=== PATIENT | female | born 1985 | race Caucasian/White ===

== ENCOUNTER 2017-03-02 22:30 | Emergency (ER) | payer MEDICAID ==
--- NOTE | 2017-03-02 23:22 | ER NURSING DOCUMENTATION ---
Nurse's Notes [facility] Name:Armando Lux Age:31 yrs Sex:Female :1985 Arrival Date:03/02/2017 Time:22:30 Bed1 Private MD: Diagnosis:Viral Upper Respiratory Infection (URI) Presentation: 03/02 22:41 Acuity: NISA 3 mk2 22:53 Presenting complaint: Patient states: Cough and sob x 7 days. Pt denies fever. Non mk2 productive cough. Transition of care: Home. Resp Distress? No respiratory distress is noted at this time. Care prior to arrival: None. 22:53 Method Of Arrival: Private Vehicle mk2 Triage Assessment: 22:55 General: Appears in no apparent distress, Behavior is cooperative. Pain: Denies pain. mk2 Respiratory: Airway is patent Breath sounds are clear bilaterally. Historical: - Allergies: Vicodin; Latex; - Home Meds: 1. gabapentin oral - PMHx: NONE; Acute Back Pain (December 31, 2016); - PSHx: APPENDECTOMY; CHOLECYSECTOMY; HYSTERECTOMY; - Tetanus: < 10 years. - Ebola Screening: : Patient negative for fever greater than or equal to 101.5 degrees Fahrenheit, and additional compatible Ebola Virus Disease symptoms. Patient denies exposure to infectious person. Patient denies travel to an Ebola-affected area in the 21 days before illness onset. No symptoms or risks identified at this time. . - Immunization history: Flu Vaccine < 1 year. - Social history: Smoking status: Patient states was never smoker of tobacco. Patient/guardian denies using alcohol, street drugs. Screenin:56 Infectious Disease Risk None. Abuse screen: Denies threats or abuse. Nutritional mk2 screening: No deficits noted. Assessment: 22:56 See Triage Assessment done by same RN. mk2 Vital Signs: 22:55 BP 132 / 64; Pulse 79; Resp 15; Temp 98.2; Pulse Ox 95% on R/A; Weight 88.45 kg; Height mk2 5 ft. 2 in. (157.48 cm); Pain 0/10; 22:55 Body Mass Index 35.67 (88.45 kg, 157.48 cm) mk2 ED Course: 22:31 Patient arrived in ED. ma1 22:34 Mali Mclean, RN is Primary Nurse. mk2 22:34 Triage completed. mk2 22:55 Arm band placed on. Bed in low position Call Light in Reach Gowned HOB Elevated. mk2 23:00 Didier James MD is Attending Physician. cd 23:21 Valuables Remains with patient. mk2 Administered Medications: No medications were administered Outcome: 23:02 Discharge ordered by . cd 23:21 Discharged to home ambulatory. mk2 23:21 Condition: good 23:21 Discharge instructions given to patient, Instructed on discharge instructions, follow up and referral plans. 23:21 Patient left the ED. mk2 Signatures: Didier James MD MD cd Kruger, Meg, RN RN mk2 Kelin Lagos
--- NOTE | 2017-03-02 23:22 | ER PHYSICIAN DOCUMENTATION ---
Physician Documentation [facility] Name:Armando Lux Age:31 yrs Sex:Female :1985 Arrival Date:03/02/2017 Time:22:30 Bed1 Private MD: Didier Acosta Disposition: 03/02 23:05 Chart complete. cd Disposition: 03/02/17 23:02 Discharged to Home/Self Care. Impression: Viral Upper Respiratory Infection (URI). - Condition is Good. - Discharge Instructions: VIRAL URI Adult - URI, Viral, No Abx (Adult). - Medical Reconciliation form form. - Follow up: Private Physician; When: 7 - 10 days; Reason: Recheck today's complaints, Continuance of care. - Problem is new. - Symptoms are unchanged. - Notes: OTC Robitussin DM for cough... OTC Claritin-D 24 hour tabs for congestion Drink plenty of fluids, rest and Tylenol for fever. HPI: 22:40 This 31 yrs old Female presents to ER via Private Vehicle with complaints of cd Cough, Coryza. 22:40 The patient or guardian reports cough, that is intermittent, with no sputum. Onset: The cd symptom(s)/episode began/occurred acutely, 3 day(s) ago. Severity of symptoms: At their worst the symptoms were mild, in the emergency department the symptoms are unchanged. Associated signs and symptoms: Pertinent positives: rhinorrhea, Pertinent negatives: chest pain, ear ache, fever, sore throat. Historical: - Allergies: Vicodin; Latex; - Home Meds: 1. gabapentin oral - PMHx: NONE; Acute Back Pain (December 31, 2016); - PSHx: APPENDECTOMY; CHOLECYSECTOMY; HYSTERECTOMY; - Tetanus: < 10 years. - Ebola Screening: : Patient negative for fever greater than or equal to 101.5 degrees Fahrenheit, and additional compatible Ebola Virus Disease symptoms. Patient denies exposure to infectious person. Patient denies travel to an Ebola-affected area in the 21 days before illness onset. No symptoms or risks identified at this time. . - Immunization history: Flu Vaccine < 1 year. - Social history: Smoking status: Patient states was never smoker of tobacco. Patient/guardian denies using alcohol, street drugs. ROS: 22:55 Constitutional: Positive for poor PO intake, Negative for chills, fever. cd 22:55 ENT: Positive for rhinorrhea, sinus congestion, Negative for sinus pain, sore throat. 22:55 Respiratory: Positive for cough, with clear sputum, Negative for hemoptysis, pleurisy, shortness of breath, wheezing. 22:55 All other systems are negative. Exam: 22:55 Head/Face: Normocephalic, atraumatic. cd Eyes: Pupils equal round and reactive to light, extra-ocular motions intact. Lids and lashes normal. Conjunctiva and sclera are non-icteric and not injected. Cornea within normal limits. Periorbital areas with no swelling, redness, or edema. Neck: Trachea midline, no thyromegaly or masses palpated, and no cervical lymphadenopathy. Supple, full range of motion without nuchal rigidity, or vertebral point tenderness. No Meningismus. 22:55 Cardiovascular: Regular rate and rhythm with a normal S1 and S2. No gallops, murmurs, cd or rubs. Normal PMI, no JVD. No pulse deficits. 22:55 Constitutional: The patient appears alert, awake, non-diaphoretic, non-toxic. 22:55 ENT: TM's: are normal, Nose: congested, Posterior pharynx: is normal, Voice: is normal. 22:55 Respiratory: the patient does not display signs of respiratory distress, Respirations: normal, no acute changes, Breath sounds: are normal, clear throughout. Vital Signs: 22:55 BP 132 / 64; Pulse 79; Resp 15; Temp 98.2; Pulse Ox 95% on R/A; Weight 88.45 kg; Height mk2 5 ft. 2 in. (157.48 cm); Pain 0/10; 22:55 Body Mass Index 35.67 (88.45 kg, 157.48 cm) mk2 MDM: 22:35 Data interpreted: Pulse oximetry: on room air is 95 %. Interpretation: normal. cd 23:00 Patient medically screened. cd 23:00 Differential Diagnosis: Bronchitis Upper Respiratory Infection Sinusitis. Data cd reviewed: vital signs, nurses notes, old medical records, and as a result, I will discharge patient. 23:05 Counseling: I had a detailed discussion with the patient and/or guardian regarding: the cd historical points, exam findings, and any diagnostic results supporting the discharge/admit diagnosis, the need for outpatient follow up, for a recheck, with the patient's primary care provider, to return to the emergency department if symptoms worsen or persist or if there are any questions or concerns that arise at home. Dispensed Medications: No medications were administered Signatures: Didier James MD MD cd Kruger, Meg, RN RN mk2
[2017-03-03] MEDS ORDERED: LIDOCAINE/EPI 2% 1:100,000 20 ML VIAL ONE (21:45)
[2017-03-03] MEDS ORDERED: ONDANSETRON ODT 4 MG TAB.RAPDIS ONE (21:51)
== END 2017-03-02 23:21 | disposition home or self-care (01) ==
LOC: ER 22:30
DX: J06.9 Acute upper respiratory infection, unspecified (principal); Z79.899 Other long term (current) drug therapy
CPT/HCPCS: 99281

== ENCOUNTER 2017-03-03 20:33 | Emergency (ER) | payer MEDICAID ==
[2017-03-03] MEDS ORDERED: BACITRACIN 1 APP/PKT PKT TOPICAL ONE (22:15)
--- NOTE | 2017-03-03 23:09 | ER PHYSICIAN DOCUMENTATION ---
Physician Documentation [facility] Name:Armando Lux Age:31 yrs Sex:Female :1985 Arrival Date:03/03/2017 Time:20:33 Bed4 Private MD: Didier Acosta Disposition: 03/03/17 22:07 Discharged to Home/Self Care. Impression: Forearm Laceration - :5 cm, simple closure (by MD). - Condition is Good. - Discharge Instructions: LACERATION, Extrem (suture, staple or tape). - Medical Reconciliation form form. - Follow up: Emergency Department; When: 03/11/2017; Reason: Recheck today's complaints, Continuance of care, Staple/Suture removal. - Problem is new. - Symptoms are resolved. - Notes: Keep wound clean, dry and covered. Watch for signs of infection. Clean daily. Sutures out in 8 days in March 11, 2017. HPI: 03/03 20:40 This 31 yrs old Female presents to ER via Walk In with complaints of Arm cd Injury - RIGHT. 20:40 The patient or guardian complains of a laceration, 5 cm(s), dirty, simple. The cd complaints affect the dorsal aspect of right forearm. Context: The problem was sustained at home, resulted from using the fist to strike, a window. Onset: The symptom(s)/episode began/occurred acutely, just prior to arrival. Associated signs and symptoms: The patient has no apparent associated signs or symptoms. Historical: - Allergies: Latex; Vicodin; - Home Meds: 1. Zoloft 25 mg oral tab Unknown once daily 2. gabapentin oral - PMHx: NONE; - Tetanus: < 10 years. - Ebola Screening: : No symptoms or risks identified at this time. . - Immunization history: Flu Vaccine < 1 year. - Social history: Smoking status: Patient states was never smoker of tobacco. ROS: 21:10 Constitutional: Negative for fever, poor PO intake. cd 21:10 MS/extremity: Positive for laceration, tenderness, Negative for paresthesias. 21:10 Skin: Positive for laceration(s), of the dorsal aspect of right forearm. 21:10 Psych: Positive for anxiety, Negative for insomnia, suicide gesture, suicidal ideation. Exam: 21:10 Musculoskeletal/extremity: Extremities: grossly normal except: noted in the dorsal cd aspect of right forearm: laceration, ROM: no acute changes, Circulation is intact in all extremities. Sensation intact. Tendon exam: specific tendon testing normal through active and passive range of motion 21:10 Skin: Appearance: normal except for affected area, injury, laceration(s), the wound is approximately 4 cm(s), with a depth of 0.5 cm(s), of the dorsal aspect of right forearm, that can be described as clean, no foreign body, linear. Vital Signs: 23:05 BP 135 / 81; Pulse 84; Resp 16; Temp 98.1; Pulse Ox 99% on R/A; Pain 1/10; mk4 23:06 BP 134 / 85; Pulse 112; Resp 15; Temp 98.2; Pulse Ox 98% on R/A; Weight 79.83 kg; mk4 Height 5 ft. 6 in. (167.64 cm); Pain 8/10; 23:06 Body Mass Index 28.41 (79.83 kg, 167.64 cm) mk4 Laceration: 21:10 Wound Repair of 5cm ( 2.0in ) subcutaneous laceration to dorsal aspect of right cd forearm. Linear shaped.. Minimal contamination.. Distal neuro/vascular/tendon intact. Anesthesia: Wound infiltrated with 8 mls of 2% lidocaine w/ Epi. Wound prep: Moderate cleansing with hibiclenz. Skin closed with 15 5-0 Ethilon using Running sutures. Dressed with Bacitracin, 4x4's, Aysha. Patient tolerated well. MDM: 21:27 Patient medically screened. cd 22:00 Data reviewed: vital signs, nurses notes, old medical records, and as a result, I will cd discharge patient. Data interpreted: Pulse oximetry: on room air is 98 %. Interpretation: normal. 22:05 Counseling: I had a detailed discussion with the patient and/or guardian regarding: the cd historical points, exam findings, and any diagnostic results supporting the discharge/admit diagnosis, the need for outpatient follow up, for a recheck, with the patient's primary care provider, to return to the emergency department if symptoms worsen or persist or if there are any questions or concerns that arise at home. Response to treatment: the patient's symptoms have markedly improved after treatment, the patient's condition has returned to base line, and as a result, I will discharge patient. Dispensed Medications: 23:06 Drug: Bactroban Ointment 2 % 1 application; Route: Topical; Infused Over: 1 mins; Site: mk4 right upper arm; Signatures: Didier James MD MD cd King, Melody [facility]
--- NOTE | 2017-03-03 23:09 | ER NURSING DOCUMENTATION ---
Nurse's Notes [facility] Name:Armando Lux Age:31 yrs Sex:Female :1985 Arrival Date:03/03/2017 Time:20:33 Bed4 Private MD: Diagnosis:Forearm Laceration-:5 cm, simple closure (by MD) Presentation: 03/03 20:44 Presenting complaint: Patient states: Put right arm through glass window. Laceration mk4 present on forearm and middle finger. 21:02 Presenting complaint: Patient states: Put right arm through glass window. Laceration on mk4 forearm and middle finger. Transition of care: Home. Notified ED Physician of Dr. James notified. 21:02 Method Of Arrival: Walk In [facility] 21:02 Acuity: NISA 4 mk4 Triage Assessment: 20:44 General: Appears distressed, Behavior is crying. Pain: Complains of pain in dorsal mk4 aspect of right forearm and right hand Pain does not radiate. EENT: No deficits noted. Neuro: No deficits noted. Cardiovascular: Chest pain is denied. Respiratory: Airway is patent Respiratory effort is even, unlabored, Respiratory pattern is regular, symmetrical. GI: Abdomen is flat. : No deficits noted. 20:44 Musculoskeletal: Circulation, motion, and sensation intact Capillary refill < 3 seconds mk4 Range of motion intact in all extremities. Tenderness present in dorsal aspect of right forearm. Injury Description: Laceration sustained to dorsal aspect of right forearm is clean, 0.5 to 2.5 cm long, not bleeding, was sustained 30-60 minutes ago. is bleeding a small amount. Historical: - Allergies: Latex; Vicodin; - Home Meds: 1. Zoloft 25 mg oral tab Unknown once daily 2. gabapentin oral - PMHx: NONE; - Tetanus: < 10 years. - Ebola Screening: : No symptoms or risks identified at this time. . - Immunization history: Flu Vaccine < 1 year. - Social history: Smoking status: Patient states was never smoker of tobacco. Screenin:40 Infectious Disease Risk None. Abuse screen: Unable to Obtain. Nutritional screening: No mk4 deficits noted. Assessment: 20:44 See Triage Assessment done by same RN. 4 Vital Signs: 23:05 BP 135 / 81; Pulse 84; Resp 16; Temp 98.1; Pulse Ox 99% on R/A; Pain 1/10; 4 23:06 BP 134 / 85; Pulse 112; Resp 15; Temp 98.2; Pulse Ox 98% on R/A; Weight 79.83 kg; mk4 Height 5 ft. 6 in. (167.64 cm); Pain 8/10; 23:06 Body Mass Index 28.41 (79.83 kg, 167.64 cm) 4 ED Course: 04:40 Valuables Remains with patient. Pulse ox on. NIBP on. 4 20:34 Patient arrived in ED. jt 20:44 Mylene Tian is Primary Nurse. mk4 20:44 Allergy Band Placed Arm band placed on Bed in low position Call Light in Reach HOB mk4 Elevated. Affected limb elevated. Pressure dressing applied. 21:05 Triage completed. 4 21:27 Didier James MD is Attending Physician. cd 23:00 Assist Provider Assist provider with laceration repair on dorsal aspect of right mk4 forearm that was 2.5 cm. or less using sutures. Set up tray. Performed by Didier Jamse MD Dressed with Kerlix, Neosporin, Patient tolerated well. Wound care to laceration located on dorsal aspect of right forearm was cleaned with soap and water, Patient tolerated well. Administered Medications: 23:06 Drug: Bactroban Ointment 2 % 1 application; Route: Topical; Infused Over: 1 mins; Site: mk4 right upper arm; Outcome: 22:07 Discharge ordered by . cd 23:05 Discharged to home ambulatory. [facility] 23:05 Condition: good 23:05 Discharge Assessment: Patient awake, alert and oriented x 3. No cognitive and/or functional deficits noted. Patient verbalized understanding of disposition instructions. 23:05 Discharge instructions given to patient, Instructed on discharge instructions, follow up and referral plans. wound care, Demonstrated understanding of 23:08 Patient left the ED. [facility] 03/04 14:16 Discharge F/U Call: Unable to reach: no answer surendra 03/05 13:31 Discharge F/U Call: Overall Care on a scale of 1-10 with 10 being the best care, you surendra rate our care as: Other comments: Pt here on this date with intoxicated Pt states to this RN that laceration to her right arm was intentional because of "all that is going on" Denies feeling unsafe or suicidal 14:25 Discharge F/U Call: Overall Care on a scale of 1-10 with 10 being the best care, you ma rate our care as: Other comments: [facility] social services designee notified, [facility], [place] Child Protective services notified, spoke with Mattie at [facility]. Signatures: Milly Patino, RN RN Didier Haynes MD MD cd King, Shellie Foster
== END 2017-03-03 23:08 | disposition home or self-care (01) ==
LOC: ER 20:33
DX: S51.811A Laceration without foreign body of right forearm, initial encounter (principal); W25.XXXA Contact with sharp glass, initial encounter; Y92.019 Unspecified place in single-family (private) house as the place of occurrence of the external cause; Z79.899 Other long term (current) drug therapy; Z74.3 Need for continuous supervision
CPT/HCPCS: 12002; 99284; A0425; A0429

== ENCOUNTER 2017-03-11 07:53 | Emergency (ER) | payer MEDICAID ==
--- NOTE | 2017-03-11 08:38 | ER NURSING DOCUMENTATION ---
Nurse's Notes [facility] Name:Armando Lux Age:31 yrs Sex:Female :1985 Arrival Date:03/11/2017 Time:07:53 Bed1 Private MD:Kristian Garcia Diagnosis:Suture Removal Presentation: 03/11 07:59 Acuity: NISA 4 st 08:00 Presenting complaint: Patient states: pt is here for suture removal from right arm. st Transition of care: Home. 08:00 Method Of Arrival: Private Vehicle st 08:02 Notified ED Physician of Dr. Gan notified. st Triage Assessment: 08:01 Injury Description: pt has two areas of sutures on the right arm. one is slightly st reddened around the sutures but looks to be healing well. the other is red and warm to the touch looks to be sealed well but appears to be infected. 08:01 General: Appears in no apparent distress, Behavior is cooperative. Pain: Denies pain. st Cardiovascular: No deficits noted. Respiratory: No deficits noted. GI: No deficits noted. - Tetanus: < 10 years. Vital Signs: 08:01 BP 144 / 92; Pulse 97; Temp 98.3; Pulse Ox 92% on R/A; Pain 0/10; st ED Course: 07:55 Patient arrived in ED. arc 07:56 Kristian Garcia MD is Private Physician. arc 07:59 Flores Tiwari, RN is Primary Nurse. st 07:[address] 08:35 Suture site is upper area steri striped because there was some re opening with suture st removal. lower wound sutures removed reddened are traced with skin pen and pt instructed to return if that area grew. Administered Medications: No medications were administered Outcome: 08:36 Discharged to home ambulatory. st 08:36 Condition: improved 08:36 Instructed on wound care. 08:37 Discharge ordered by MD. st 08:37 Patient left the ED. st 03/12 10:39 Discharge F/U Call: Unable to reach: non-working number surendra Signatures: Flores Tiwari RN RN st Abuso, Melanie, RN RN Marianna Rand, Reg Reg arc
[2017-03-11] MEDS ORDERED: SULFAMETHOXAZOLE/TMP 800/160MG 1 EA TABLET PO ONE (20:25)
== END 2017-03-11 08:38 | disposition home or self-care (01) ==
LOC: ER 07:53
DX: Z48.02 Encounter for removal of sutures (principal); S51.811D Laceration without foreign body of right forearm, subsequent encounter
CPT/HCPCS: 99281

== ENCOUNTER 2017-03-11 19:36 | Emergency (ER) | payer MEDICAID ==
--- NOTE | 2017-03-11 20:25 | ER NURSING DOCUMENTATION ---
Nurse's Notes [facility] Name:Armando Lux Age:31 yrs Sex:Female :1985 Arrival Date:03/11/2017 Time:19:36 Bed6 Private MD:Kristian Garcia Diagnosis:Wound Infection Presentation: 03/11 19:46 Presenting complaint: Patient states: I got my stitches out today and they said if the mk2 redness went outside the line to come in and it started to this afternoon and it really hurts. Transition of care: Home. 19:46 Method Of Arrival: Walk In 2 19:46 Acuity: NISA 5 mk2 Triage Assessment: 19:47 General: Appears in no apparent distress, Behavior is cooperative. Pain: Complains of mk2 pain in right arm. Neuro: No deficits noted. Cardiovascular: No deficits noted. Respiratory: No deficits noted. Derm: Pt has a healing laceration with steristrips applied today to the dorsal surface. No redness or erythema noted. Proximal to that laceration is a healing scab with redness the size of a quarter that is extending slightly beyond the boarders drawn. Historical: - Allergies: Vicodin; Positive latex allergy; - Home Meds: 1. Lamictal Oral - PMHx: OVARIAN CYST (November 19, 2015); OVARIAN CYST; SEIZURES; Diplopia (February 23, 2016); Dizziness - Vertigo (February 23, 2016); - PSHx: HYSTERECTOMY; CHOLECYSECTOMY; APPENDECTOMY; - Tetanus: < 10 years. - Ebola Screening: : Patient negative for fever greater than or equal to 101.5 degrees Fahrenheit, and additional compatible Ebola Virus Disease symptoms. Patient denies exposure to infectious person. Patient denies travel to an Ebola-affected area in the 21 days before illness onset. No symptoms or risks identified at this time. . - Immunization history: Flu Vaccine < 1 year. - Social history: Smoking status: Patient uses tobacco products, current every day smoker. Patient/guardian denies using alcohol, street drugs. Screenin:50 Infectious Disease Risk None. Abuse screen: Denies threats or abuse. Nutritional mk2 screening: No deficits noted. Assessment: 19:50 See Triage Assessment done by same RN. 2 Vital Signs: 19:50 BP 131 / 61; Pulse 81; Resp 15; Temp 98.1; Pulse Ox 95% on R/A; Weight 79.83 kg; Height mk2 5 ft. 6 in. (167.64 cm); Pain 5/10; 19:50 Body Mass Index 28.41 (79.83 kg, 167.64 cm) mk2 ED Course: 19:37 Patient arrived in ED. em2 19:38 Kristian Garcia MD is Private Physician. em2 19:43 Lauro Hill MD is Attending Physician. ct 19:45 Mali Mclean, RN is Primary Nurse. mk2 19:46 Triage completed. mk2 19:50 Arm band placed on Bed in low position Call Light in Reach Gowned HOB Elevated. mk2 20:17 Kristian Garcia MD is Referral Physician. sc Administered Medications: 20:16 Drug: Bactrim (160 mg-800 mg (DS) 1 tabs; Route: PO; mk2 20:23 Follow up: Response: No adverse reaction 2 Outcome: 20:18 Discharge ordered by . ct 20:24 Patient left the ED. 2 03/12 18:02 Discharge F/U Call: Spoke with: patient. other: Name: pt states her arm is doing st better she is taking her abx. pt had no questions or concerns. Signatures: Flores Tiwari RN RN st Chew, Scott, MD MD sc Kruger, Meg, RN RN 2 Meinking-reg, Vangie-reg em2
--- NOTE | 2017-03-11 20:25 | ER PHYSICIAN DOCUMENTATION ---
Physician Documentation [facility] Name:Armando Lux Age:31 yrs Sex:Female :1985 Arrival Date:03/11/2017 Time:19:36 Bed6 Private MD:Kristian Garcia ED, Scott Disposition: 03/11/17 20:18 Discharged to Home/Self Care. Impression: Wound Infection. - Condition is Fair. - Discharge Instructions: WOUND CHECK Suture Removal Infected - SUTURE REMOVAL, Infected. - Prescriptions for Bactrim DS 160- 800 mg Oral Tablet - take 1 tablet by ORAL route every 12 hours for 7 days; 14 tablet. - Medical Reconciliation form form. - Follow up: Kristian Garcia MD; When: 2 - 3 days; Reason: Recheck today's complaints. - Problem is new. - Symptoms are unchanged. HPI: 03/11 20:12 This 31 yrs old Female presents to ER via Walk In with complaints of Arm sc Problem - RIGHT. 20:12 Patient presents to ED for recheck of: laceration. The affected area is on the right sc arm. Previous treatment: Treatment type: The patient's original treatment included sutures, sutures removed today now slightly tender and red, 1 cm. Progress: The patient reports increased. Historical: - Allergies: Vicodin; Positive latex allergy; - Home Meds: 1. Lamictal Oral - PMHx: OVARIAN CYST (November 19, 2015); OVARIAN CYST; SEIZURES; Diplopia (February 23, 2016); Dizziness - Vertigo (February 23, 2016); - PSHx: HYSTERECTOMY; CHOLECYSECTOMY; APPENDECTOMY; - Tetanus: < 10 years. - Ebola Screening: : Patient negative for fever greater than or equal to 101.5 degrees Fahrenheit, and additional compatible Ebola Virus Disease symptoms. Patient denies exposure to infectious person. Patient denies travel to an Ebola-affected area in the 21 days before illness onset. No symptoms or risks identified at this time. . - Immunization history: Flu Vaccine < 1 year. - Social history: Smoking status: Patient uses tobacco products, current every day smoker. Patient/guardian denies using alcohol, street drugs. ROS: 20:16 Constitutional: Negative for fever, chills, and weight loss. sc Eyes: Negative for injury, pain, redness, and discharge. Neck: Negative for injury, pain, and swelling. MS/Extremity: Negative for injury and deformity. 20:16 Neuro: Negative for headache, weakness, numbness, tingling, and seizure. ny 20:16 Skin: Positive for erythema. Exam: Constitutional: This is a well developed, well nourished patient who is awake, alert, and in no acute distress. Head/Face: Normocephalic, atraumatic. Eyes: Pupils equal round and reactive to light, extra-ocular motions intact. Lids and lashes normal. Conjunctiva and sclera are non-icteric and not injected. Cornea within normal limits. Periorbital areas with no swelling, redness, or edema. MS/ Extremity: Pulses equal, no cyanosis. Neurovascular intact. Full, normal range of motion, negative Homans's, calves equal bilaterally. 20:16 Neuro: Awake and alert, GCS 15, oriented to person, place, time, and situation. ny Cranial nerves II-XII grossly intact. Motor strength 5/5 in all extremities. Sensory grossly intact. Cerebellar exam normal. Normal gait. 20:16 Skin: Appearance: normal except for affected area, Color: Wound recheck: Suture laceration closure: mild erythema. Vital Signs: 19:50 BP 131 / 61; Pulse 81; Resp 15; Temp 98.1; Pulse Ox 95% on R/A; Weight 79.83 kg; Height mk2 5 ft. 6 in. (167.64 cm); Pain 5/10; 19:50 Body Mass Index 28.41 (79.83 kg, 167.64 cm) mk2 MDM: 19:43 Patient medically screened. ny 20:17 Differential diagnosis: cellulitis. Data reviewed: vital signs, nurses notes, old [place] medical records, and as a result, I will administer antibiotics. Counseling: I had a detailed discussion with the patient and/or guardian regarding: the historical points, exam findings, and any diagnostic results supporting the discharge/admit diagnosis, the need for outpatient follow up, to return to the emergency department if symptoms worsen or persist or if there are any questions or concerns that arise at home. Dispensed Medications: 20:16 Drug: Bactrim (160 mg-800 mg (DS) 1 tabs; Route: PO; mk2 20:23 Follow up: Response: No adverse reaction 2 Signatures: Lauro Hill MD MD sc Kruger Mali, RN RN mk2
== END 2017-03-11 20:25 | disposition home or self-care (01) ==
LOC: ER 19:36
DX: T79.8XXA Other early complications of trauma, initial encounter (principal); S51.811S Laceration without foreign body of right forearm, sequela
CPT/HCPCS: 99282

== ENCOUNTER 2017-03-21 17:36 | Emergency (ER) | payer MEDICAID ==
[2017-03-21] MEDS ORDERED: HYDROmorphone HCL 1 MG/ML SYR ONE (18:40)
--- NOTE | 2017-03-21 18:45 | ER PHYSICIAN DOCUMENTATION ---
Physician Documentation [facility] Name:Armando Lux Age:31 yrs Sex:Female :1985 Arrival Date:03/21/2017 Time:17:36 Bed4 Private MD:Kristian Garcia ED, John Disposition: 03/21/17 18:34 Discharged to Home/Self Care. Impression: Abdominal Pain, Right Lower Quadrant. - Condition is Good. - Discharge Instructions: ABDOMINAL PAIN, Unknown Cause, (Female). - Medical Reconciliation form form. - Follow up: Kristian Garcia MD; When: Tomorrow; Reason: Continuance of care. - Problem is new. - Symptoms have improved. HPI: 03/21 18:27 This 31 yrs old Female presents to ER via Private Vehicle with complaints of jm Abdominal Pain. 18:27 The patient presents with abdominal pain right lower quadrant. Onset: The jm symptoms/episode began/occurred today. Associated signs and symptoms: Pertinent negatives: anorexia, constipation, diarrhea, dysuria, fever, vaginal discharge, vomiting. The symptoms are described as steady. Severity of pain: in the emergency department the pain is unchanged. The patient has experienced similar episodes in the past, and the symptoms today are exactly the same, to when the patient was apparently diagnosed with ovarian cysts. 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 Lamictal Oral 2. gabapentin oral 3. Xanax Oral 4. Zyprexa Oral 5. allopurinol Oral - PMHx: SEIZURES; OVARIAN CYST; Diplopia (February 23, 2016); Dizziness - Vertigo (February 23, 2016); Wound Infection (March 11, 2017); - PSHx: HYSTERECTOMY; CHOLECYSECTOMY; APPENDECTOMY; - Tetanus: < 10 years < 10 years. - Ebola Screening: : Patient negative for fever greater than or equal to 101.5 degrees Fahrenheit, and additional compatible Ebola Virus Disease symptoms. Patient denies exposure to infectious person. Patient denies travel to an Ebola-affected area in the 21 days before illness onset. No symptoms or risks identified at this time. Patient negative for fever greater than or equal to 101.5 degrees Fahrenheit, and additional compatible Ebola Virus Disease symptoms. - Immunization history: Pneumococcal vaccine is up to date, Flu Vaccine < 1 year. - Social history: Smoking status: Patient states was never smoker of tobacco. ROS: 18:28 Constitutional: Negative for jm 18:28 Respiratory: Positive for 18:28 Abdomen/GI: Positive for abdominal pain. Exam: 18:30 Constitutional: This is a well developed, well nourished patient who is awake, alert, jm and in no acute distress. 18:30 Cardiovascular: Rate: tachycardic, Rhythm: regular. 18:30 Abdomen/GI: Bowel sounds: normal, Palpation: moderate abdominal tenderness, in the right lower quadrant. 18:30 Back: pain, is absent, CVA tenderness, is absent. Vital Signs: 17:49 BP 144 / 89; Pulse 100; Resp 15; Temp 97.9; Pulse Ox 94% on R/A; Weight 78.47 kg; rh Height 5 ft. 6 in. (167.64 cm); 18:42 BP 124 / 76; Pulse 80; Resp 16; Pulse Ox 93% on R/A; sc1 17:49 Body Mass Index 27.92 (78.47 kg, 167.64 cm) rh MDM: 18:01 Patient medically screened. 18:31 Differential diagnosis: non-specific abd pain, ovarian cyst. Data reviewed: vital jm signs, nurses notes, lab test result(s), urinalysis, and as a result, I will discharge patient. Counseling: I had a detailed discussion with the patient and/or guardian regarding: the historical points, exam findings, and any diagnostic results supporting the discharge/admit diagnosis, the need for outpatient follow up, with the patient's primary care provider, and for US tomorrow. . ED course: Pt given IM Dilaudid and outpt order for US in the AM. She can f/u w Dr. Garcia based on the results of that US. No meds dispense or Rx'd. . 03/21 17:53 Order name: Urine Dip; Complete Time: 17:53 sc1 Dispensed Medications: 18:33 Drug: Dilaudid 1 mg; Route: IM; Site: left deltoid; rh 18:35 Follow up: Response: Pain is decreased rh 18:42 Follow up: Response: Pain is decreased rh Point of Care Testing: Urine Dip: 17:49 pH: 6.0; ; Specific [place]: 1.030; Ketones: Negative; Glucose: Negative; Protein: rh Negative; Leukocytes: Negative; Nitrite: Negative ; Blood: Moderate (++); Bilirubin: Negative ; Urobilinogen: Normal Signatures: Solange Aguirre RN RN il1 Jean-Claude Maciel MD MD jm Hofsess, Rachel
--- NOTE | 2017-03-21 18:45 | ER NURSING DOCUMENTATION ---
Nurse's Notes [facility] Name:Armando Lux Age:31 yrs Sex:Female :1985 Arrival Date:03/21/2017 Time:17:36 Bed4 Private MD:Kristian Garcia Diagnosis:Abdominal Pain, Right Lower Quadrant Presentation: 03/21 17:38 Acuity: NISA 3 rh 17:50 Presenting complaint: Patient states: RLQ abdominal pain off and on today. Transition sc1 of care: Home. Notified ED Physician of patient's arrival and CC Raheem Victor notified. 17:50 Method Of Arrival: Private Vehicle sc1 Triage Assessment: 17:52 General: Appears in no apparent distress, well developed, well nourished, well groomed, sc1 Behavior is cooperative, pleasant. Pain: Complains of pain in right lower quadrant. Pain: Pain does not radiate. Pain. GI: No deficits noted. 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 Lamictal Oral 2. gabapentin oral 3. Xanax Oral 4. Zyprexa Oral 5. allopurinol Oral - PMHx: SEIZURES; OVARIAN CYST; Diplopia (February 23, 2016); Dizziness - Vertigo (February 23, 2016); Wound Infection (March 11, 2017); - PSHx: HYSTERECTOMY; CHOLECYSECTOMY; APPENDECTOMY; - Tetanus: < 10 years < 10 years. - Ebola Screening: : Patient negative for fever greater than or equal to 101.5 degrees Fahrenheit, and additional compatible Ebola Virus Disease symptoms. Patient denies exposure to infectious person. Patient denies travel to an Ebola-affected area in the 21 days before illness onset. No symptoms or risks identified at this time. Patient negative for fever greater than or equal to 101.5 degrees Fahrenheit, and additional compatible Ebola Virus Disease symptoms. - Immunization history: Pneumococcal vaccine is up to date, Flu Vaccine < 1 year. - Social history: Smoking status: Patient states was never smoker of tobacco. Screenin:52 Infectious Disease Risk None. Abuse screen: Denies threats or abuse. Denies injuries rh from another. Nutritional screening: No deficits noted. Vital Signs: 17:49 BP 144 / 89; Pulse 100; Resp 15; Temp 97.9; Pulse Ox 94% on R/A; Weight 78.47 kg; rh Height 5 ft. 6 in. (167.64 cm); 18:42 BP 124 / 76; Pulse 80; Resp 16; Pulse Ox 93% on R/A; sc1 17:49 Body Mass Index 27.92 (78.47 kg, 167.64 cm) ED Course: 17:38 Patient arrived in ED. 17:38 Kristian Garcia MD is Private Physician. ds 17:38 Solange Aguirre RN is Primary Nurse. ma1 17:39 Triage completed. rh 17:52 Valuables Remains with patient Patient has correct armband on for positive rh identification. Placed in gown. Bed in low position. Call light in reach. Side rails up X 1. 17:53 Urine collected. Clean catch specimen. [facility] [place] 18:01 Jean-Claude Maciel MD is Attending Physician. 18:33 Kristian Garcia MD is Referral Physician. Administered Medications: 18:33 Drug: Dilaudid 1 mg; Route: IM; Site: left deltoid; 18:35 Follow up: Response: Pain is decreased 18:42 Follow up: Response: Pain is decreased Point of Care Testing: Urine Dip: 17:49 pH: 6.0; ; Specific [place]: 1.030; Ketones: Negative; Glucose: Negative; Protein: rh Negative; Leukocytes: Negative; Nitrite: Negative ; Blood: Moderate (++); Bilirubin: Negative ; Urobilinogen: Normal Outcome: 18:34 Discharge ordered by . 18:42 Discharged to home ambulatory. [facility] [place] 18:42 Condition: stable 18:43 Instructed on discharge instructions, follow up and referral plans. Demonstrated [facility] [place] understanding of instructions. 18:44 Patient left the ED. [facility] [place] Signatures: Solange Aguirre RN RN ma1 Srot, Kiersten, Reg Reg Jean-Claude Maciel MD MD jm Hofsess, Rachel
== END 2017-03-21 18:44 | disposition home or self-care (01) ==
LOC: ER 17:36
DX: R10.31 Right lower quadrant pain (principal); Z87.42 Personal history of other diseases of the female genital tract
CPT/HCPCS: 96372; 99283; J1170

== ENCOUNTER 2017-05-07 18:18 | Emergency (ER) | payer MEDICAID ==
--- NOTE | 2017-05-07 19:13 | ER PHYSICIAN DOCUMENTATION ---
Physician Documentation [facility] Name:Armando Lux Age:31 yrs Sex:Female :1985 Arrival Date:05/07/2017 Time:18:18 Bed3 Private MD:Kristian Garcia ED, John Disposition: 05/07/17 19:03 Discharged to Home/Self Care. Impression: Renal Colic. - Condition is Good. - Discharge Instructions: KIDNEY STONE w/ Colic. - Medical Reconciliation form form. - Follow up: Kristian Garcia MD; When: for US follow up; Reason: Continuance of care. - Problem is an ongoing problem. - Symptoms have improved. HPI: 05/07 23:44 This 31 yrs old Female presents to ER via Private Vehicle with complaints of jm Back Pain. 23:44 This 31 yrs old Female presents to ER via Private Vehicle with complaints of jm Back Pain. 23:44 The patient presents with pain that is acute. The symptoms are located in the low back. jm 23:44 The patient complains of pain in the right mid back. The patient complains of pain in jm the right mid back. The pain does not radiate. Onset: The symptom(s)/episode began/occurred last week, and became worse today. Associated signs and symptoms: Pertinent positives: hematuria. Severity of pain: in the emergency department the pain is unchanged. The patient has been recently seen by a physician: Dr. Pritchett- who did a shot of Toradol, . Historical: - Allergies: Vicodin; Latex; - Home Meds: 1. Lamictal Oral 2. gabapentin oral 3. Xanax Oral 4. Zyprexa Oral 5. allopurinol Oral - PMHx: SEIZURES; OVARIAN CYST; - PSHx: HYSTERECTOMY; CHOLECYSECTOMY; APPENDECTOMY; - Tetanus: < 10 years. - Ebola Screening: : Patient negative for fever greater than or equal to 101.5 degrees Fahrenheit, and additional compatible Ebola Virus Disease symptoms. - Immunization history: Flu Vaccine < 1 year. - Social history: Smoking status: Patient states was never smoker of tobacco. ROS: 23:44 Abdomen/GI: Negative for abdominal pain, nausea, vomiting. jm 23:44 Back: Positive for pain at rest, pain with movement. 23:44 : Positive for flank pain, hematuria. Exam: 23:44 Constitutional: The patient appears in no acute distress, alert, awake. 23:44 Cardiovascular: Rate: tachycardic, Rhythm: regular. 23:44 Abdomen/GI: Bowel sounds: normal, Palpation: abdomen is soft and non-tender. 23:44 Back: pain, that is moderate, CVA tenderness, that is moderate, is noted on the right. 23:44 : CVA tenderness, that is moderate, Bladder: is normal. Vital Signs: 18:29 BP 134 / 88 RA Sitting; Pulse 109; Resp 18 S; Temp 98.4(O); Pulse Ox 94% on R/A; Weight la 83.91 kg (M); Height 5 ft. 6 in. (167.64 cm); Pain 8/10; 19:08 BP 125 / 77 RA Sitting; Pulse 109; Resp 18; Pulse Ox 94% on R/A; Pain 8/10; la 18:29 Body Mass Index 29.86 (83.91 kg, 167.64 cm) la MDM: 18:33 Patient medically screened. 23:45 Differential diagnosis: nephrolithiasis, pyelonephritis, UTI, malingering. Data jenny reviewed: vital signs, nurses notes, and as a result, I will discharge patient. Counseling: I had a detailed discussion with the patient and/or guardian regarding: the historical points, exam findings, and any diagnostic results supporting the discharge/admit diagnosis, lab results. Medication response: The patient's symptoms have improved, ED course: Pt told she needs to get her US tomorrow. I did not give rx, only single shot of toradol. . 05/07 18:39 Order name: Urine Dip; Complete Time: 18:39 la Dispensed Medications: 19:04 CANCELLED (Physician Discretion): Dilaudid 1 mg IM once 19:08 Drug: Toradol 60 mg; Route: IM; Site: right gluteus; la 19:12 Follow up: Response: No adverse reaction la Point of Care Testing: Urine Dip: 18:35 pH: 5.5; ; Specific [place]: 1.020; Ketones: Negative; Glucose: Negative; Protein: rh Negative; Leukocytes: Negative; Nitrite: Negative ; Blood: Moderate (++); Bilirubin: Negative ; Urobilinogen: Normal Signatures: Jean-Claude Maciel MD MD jm Alexander, Linda la
--- NOTE | 2017-05-07 19:13 | ER NURSING DOCUMENTATION ---
Nurse's Notes [facility] Name:Armando Lux Age:31 yrs Sex:Female :1985 Arrival Date:05/07/2017 Time:18:18 Bed3 Private MD:Kristian Garcia Diagnosis:Renal Colic Presentation: 05/07 18:21 Acuity: NISA 3 la 18:21 Presenting complaint: Patient states: right flank pain x6 days, history of kidney la stones. Saw Dr Pritchett who gave her toradol script. Pain not getting better. states blood in urine. Transition of care: Home. 18:21 Method Of Arrival: Private Vehicle la Triage Assessment: 18:27 General: Appears comfortable, Behavior is appropriate for age, cooperative, pleasant. la Pain: Complains of pain in rilght flank Pain currently is 8 out of 10 on a pain scale. EENT: No deficits noted. Neuro: Level of Consciousness is awake, alert, obeys commands, Oriented to person, place, time, event. Cardiovascular: No deficits noted. Respiratory: No deficits noted. GI: Abdomen is obese, Abd is soft and non tender X 4 quads. Reports nausea. : Urine is clear, blood tinged, per pt. Derm: No deficits noted. Musculoskeletal: No deficits noted. Historical: - Allergies: Vicodin; Latex; - Home Meds: 1. Lamictal Oral 2. gabapentin oral 3. Xanax Oral 4. Zyprexa Oral 5. allopurinol Oral - PMHx: SEIZURES; OVARIAN CYST; - PSHx: HYSTERECTOMY; CHOLECYSECTOMY; APPENDECTOMY; - Tetanus: < 10 years. - Ebola Screening: : Patient negative for fever greater than or equal to 101.5 degrees Fahrenheit, and additional compatible Ebola Virus Disease symptoms. - Immunization history: Flu Vaccine < 1 year. - Social history: Smoking status: Patient states was never smoker of tobacco. Screenin:30 Infectious Disease Risk None. Abuse screen: Denies threats or abuse. Nutritional la screening: No deficits noted. Assessment: 18:30 See Triage Assessment done by same RN. la 19:12 Reassessment: No changes from previously documented assessment. Patient appears in no la apparent distress at this time. Vital Signs: 18:29 BP 134 / 88 RA Sitting; Pulse 109; Resp 18 S; Temp 98.4(O); Pulse Ox 94% on R/A; Weight la 83.91 kg (M); Height 5 ft. 6 in. (167.64 cm); Pain 8/10; 19:08 BP 125 / 77 RA Sitting; Pulse 109; Resp 18; Pulse Ox 94% on R/A; Pain 8/10; la 18:29 Body Mass Index 29.86 (83.91 kg, 167.64 cm) la ED Course: 18:19 Patient arrived in ED. jack 18:19 Kristian Garcia MD is Private Physician. jack 18:21 Pili Serrano is Primary Nurse. la 18:26 Triage completed. la 18:30 Valuables Remains with patient Patient has correct armband on for positive la identification. Bed in low position. Call light in reach. Side rails up X 1. Door closed. Verbal reassurance given. Pillow given. 18:33 Jean-Claude Maciel MD is Attending Physician. jenny 19:02 Kristian Garcia MD is Referral Physician. jenny Administered Medications: 19:04 CANCELLED (Physician Discretion): Dilaudid 1 mg IM once jenny 19:08 Drug: Toradol 60 mg; Route: IM; Site: right gluteus; la 19:12 Follow up: Response: No adverse reaction [place] Point of Care Testing: Urine Dip: 18:35 pH: 5.5; ; Specific [place]: 1.020; Ketones: Negative; Glucose: Negative; Protein: rh Negative; Leukocytes: Negative; Nitrite: Negative ; Blood: Moderate (++); Bilirubin: Negative ; Urobilinogen: Normal Outcome: 19:03 Discharge ordered by . ejnny 19:09 Discharged to home ambulatory. [place] 19:09 Condition: good 19:09 Discharge Assessment: Patient awake, alert and oriented x 3. No cognitive and/or functional deficits noted. Patient verbalized understanding of disposition instructions. 19:09 Discharge instructions given to patient, Instructed on discharge instructions, follow up and referral plans. Demonstrated understanding of instructions. 19:12 Patient left the ED. la Signatures: Srot, Kiersten, Reg Reg Jean-Claude Mcgee MD MD jm Alexander, Linda la Hofsess, Rachel
[2017-05-07] MEDS ORDERED: KETOROLAC TROMETHAMINE 60 MG/2 ML VIAL ONE (19:19)
== END 2017-05-07 19:13 | disposition home or self-care (01) ==
LOC: ER 18:18
DX: N23 Unspecified renal colic (principal); R31.9 Hematuria, unspecified; M54.5 Low back pain; M54.6 Pain in thoracic spine; R00.0 Tachycardia, unspecified; Z79.899 Other long term (current) drug therapy
CPT/HCPCS: 96372; 99283; J1885

== ENCOUNTER 2017-05-20 09:27 | Emergency (ER) | payer MEDICAID ==
--- NOTE | 2017-05-20 09:59 | ER NURSING DOCUMENTATION ---
Nurse's Notes [facility] Name:Armando Lux Age:31 yrs Sex:Female :1985 Arrival Date:05/20/2017 Time:09:27 Bed5 Private MD:Kristian Garcia Diagnosis:Upper Extremity Pain;Strain Presentation: 05/20 09:31 Transition of care: patient was not received from another setting of care. tg 09:31 Acuity: NISA 4 tg 09:31 Method Of Arrival: Private Vehicle tg 09:37 Presenting complaint: Patient states: Right arm/shoulder pain. Some numbness in right tg hand. Moving heavy furniture at work yesterday. No trauma. Triage Assessment: 09:41 General: Appears in no apparent distress, Behavior is cooperative. Pain: Complains of tg pain in right upper arm and right shoulder. Neuro: Level of Consciousness is awake, alert. Cardiovascular: Capillary refill < 3 seconds in right fingers. Respiratory: Respiratory effort is even, unlabored. Derm: Skin is pink, warm & dry. Historical: - Allergies: Vicodin; Latex; - Home Meds: 1. gabapentin oral 2. Xanax Oral 3. Zyprexa Oral 4. Lamictal Oral 5. allopurinol Oral - PMHx: BIPOLAR DISORDER; SEIZURES; Renal Colic (May 07, 2017); - PSHx: HYSTERECTOMY; gastric bypass; CHOLECYSECTOMY; HYSTERECTOMY; breast augmentation; - Tetanus: < 10 years. - Ebola Screening: : Patient negative for fever greater than or equal to 101.5 degrees Fahrenheit, and additional compatible Ebola Virus Disease symptoms. Patient denies exposure to infectious person. Patient denies travel to an Ebola-affected area in the 21 days before illness onset. No symptoms or risks identified at this time. . - Immunization history: Flu Vaccine unknown. - Social history: Smoking status: Patient states was never smoker of tobacco. Screenin:45 Infectious Disease Risk Unable to Obtain. Nutritional screening: No deficits noted. tg 09:58 Abuse screen: Denies threats or abuse. Denies injuries from another. Vital Signs: 09:45 BP 128 / 92; Pulse 98; Resp 14; Temp 98.2(O); Pulse Ox 95% on R/A; Weight 83.91 kg (R); tg Height 5 ft. 7 in. (170.18 cm) (R); Pain 8/10; 09:58 Pain 4/10; lc 09:45 Body Mass Index 28.97 (83.91 kg, 170.18 cm) tg ED Course: 09:29 Patient arrived in ED. arc 09:29 Kristian Garcia MD is Private Physician. arc 09:32 Triage completed. tg 09:39 Didier James MD is Attending Physician. cd 09:45 Arm band placed on. tg 09:46 Valuables Remains with patient. tg 09:47 Kristian Garcia MD is Referral Physician. cd Administered Medications: 09:50 Drug: Toradol 60 mg; Route: IM; Site: right gluteus; 09:57 Follow up: Response: No adverse reaction Outcome: 09:47 Discharge ordered by . cd 09:58 Discharged to home ambulatory. 09:58 Condition: stable 09:58 Discharge Assessment: Patient awake, alert and oriented x 3. No cognitive and/or functional deficits noted. Patient verbalized understanding of disposition instructions. 09:58 Discharge instructions given to patient, Instructed on discharge instructions, follow up and referral plans. medication usage, [facility] Demonstrated understanding of instructions, medications. 09:58 Patient left the ED. 05/21 09:40 Discharge F/U Call: Unable to reach: no answer Signatures: Man Howard RN KASSIDY Pili Mcwilliams RN RN Addis Coet RN RN Didier Macdonald MD MD cd Marianna Hill, Reg Reg arc
--- NOTE | 2017-05-20 09:59 | ER PHYSICIAN DOCUMENTATION ---
Physician Documentation [facility] Name:Armando Lux Age:31 yrs Sex:Female :1985 Arrival Date:05/20/2017 Time:09:27 Bed5 Private MD:Kristian Garcia ED, Chris Disposition: 05/20/17 09:47 Discharged to Home/Self Care. Impression: Upper Extremity Pain, Strain. - Condition is Good. - Discharge Instructions: STRAINED MUSCLE Extremity - MUSCLE STRAIN, Extremity. - Medical Reconciliation form form. - Follow up: Kristian Garcia MD; When: 7 - 10 days; Reason: Recheck today's complaints, Continuance of care. - Problem is new. - Symptoms have improved. - Notes: Tylenol 650mg by mouth every 6 hours for 2 - 3 days. Rest, no work and apply ic packs to right arm. HPI: 05/20 09:30 This 31 yrs old Female presents to ER via Private Vehicle with complaints of cd Right Arm Pain. 09:30 The patient or guardian complains of pain, that is acute. The complaints affect the cd anterior aspect of right shoulder, right bicep, posterior aspect of right shoulder and right tricep. Context: The problem was sustained at home, resulted from repetitive motion from cleaning. Onset: The symptom(s)/episode began/occurred acutely, this morning. Associated signs and symptoms: The patient has no apparent associated signs or symptoms. Severity of symptoms: At their worst the symptoms were moderate, in the emergency department the symptoms are unchanged. Historical: - Allergies: Vicodin; Latex; - Home Meds: 1. gabapentin oral 2. Xanax Oral 3. Zyprexa Oral 4. Lamictal Oral 5. allopurinol Oral - PMHx: BIPOLAR DISORDER; SEIZURES; Renal Colic (May 07, 2017); - PSHx: HYSTERECTOMY; gastric bypass; CHOLECYSECTOMY; HYSTERECTOMY; breast augmentation; - Tetanus: < 10 years. - Ebola Screening: : Patient negative for fever greater than or equal to 101.5 degrees Fahrenheit, and additional compatible Ebola Virus Disease symptoms. Patient denies exposure to infectious person. Patient denies travel to an Ebola-affected area in the 21 days before illness onset. No symptoms or risks identified at this time. . - Immunization history: Flu Vaccine unknown. - Social history: Smoking status: Patient states was never smoker of tobacco. ROS: 09:40 Cardiovascular: Negative for chest pain, palpitations, edema and pleuritic pain. cd Respiratory: Negative for shortness of breath, dyspnea on exertion, cough, sputum production, wheezing, hemoptysis and pleuritic chest pain. Abdomen/GI: Negative for abdominal pain, nausea, vomiting, diarrhea, constipation, distension, melena, hematochezia and hematemesis. Back: Negative for injury, pain or muscle spasms. 09:40 Neuro: Negative for headache, weakness, numbness, tingling, and seizure. cd 09:40 Constitutional: Negative for chills, fever, poor PO intake. 09:40 MS/extremity: Positive for injury or acute deformity, pain, Negative for deformity, ecchymosis, erythema, paresthesias, swelling. Exam: Neck: Trachea midline, no thyromegaly or masses palpated, and no cervical lymphadenopathy. Supple, full range of motion without nuchal rigidity, or vertebral point tenderness. No Meningismus. Chest/axilla: Normal chest wall appearance and motion. Nontender with no deformity. No lesions are appreciated. Cardiovascular: Regular rate and rhythm with a normal S1 and S2. No gallops, murmurs, or rubs. Normal PMI, no JVD. No pulse deficits. Respiratory: Lungs have equal breath sounds bilaterally, clear to auscultation and percussion. No rales, rhonchi or wheezes noted. No increased work of breathing, no retractions or nasal flaring. Abdomen/GI: Soft, non-tender, with normal bowel sounds. No distension or tympany. No guarding or rebound. No evidence of tenderness throughout. 09:40 Back: No spinal tenderness. No costovertebral tenderness. Full range of motion. cd 09:40 Neuro: Awake and alert, GCS 15, oriented to person, place, time, and situation. Cranial nerves II-XII grossly intact. Motor strength 5/5 in all extremities. Sensory grossly intact. Cerebellar exam normal. Normal gait. 09:40 Constitutional: The patient appears alert, awake, non-diaphoretic, non-toxic, well developed, well nourished, anxious, obese. 09:40 Musculoskeletal/extremity: Extremities: grossly normal except: noted in the right arm: pain, There is no evidence of decreased ROM, deformity, ecchymosis, erythema, ROM: limited active range of motion due to pain, Circulation is intact in all extremities. Sensation intact. Vital Signs: 09:45 BP 128 / 92; Pulse 98; Resp 14; Temp 98.2(O); Pulse Ox 95% on R/A; Weight 83.91 kg (R); tg Height 5 ft. 7 in. (170.18 cm) (R); Pain 8/10; 09:58 Pain 4/10; lc 09:45 Body Mass Index 28.97 (83.91 kg, 170.18 cm) tg MDM: 09:39 Patient medically screened. cd 09:50 Data reviewed: vital signs, nurses notes, old medical records, and as a result, I will cd discharge patient, prescribe pain medication, Toradol. Data interpreted: Pulse oximetry: on room air is 95 %. Interpretation: normal. Counseling: I had a detailed discussion with the patient and/or guardian regarding: the historical points, exam findings, and any diagnostic results supporting the discharge/admit diagnosis, the need for outpatient follow up, for a recheck, with the patient's primary care provider, to return to the emergency department if symptoms worsen or persist or if there are any questions or concerns that arise at home. Response to treatment: the patient's symptoms have markedly improved after treatment, and as a result, I will discharge patient. 05/20 09:47 Order name: Ice Packs; Complete Time: 09:48 cd Dispensed Medications: 09:50 Drug: Toradol 60 mg; Route: IM; Site: right gluteus; 09:57 Follow up: Response: No adverse reaction lc Signatures: Man Howard RN RN Pili Mcwilliams RN RN Didier Lam MD MD cd
[2017-05-20] MEDS ORDERED: KETOROLAC TROMETHAMINE 60 MG/2 ML VIAL ONE (10:03)
== END 2017-05-20 09:59 | disposition home or self-care (01) ==
LOC: ER 09:27
DX: S46.911A Strain of unspecified muscle, fascia and tendon at shoulder and upper arm level, right arm, initial encounter (principal); X50.3XXA Overexertion from repetitive movements, initial encounter; Y92.019 Unspecified place in single-family (private) house as the place of occurrence of the external cause; Y93.E5 Activity, floor mopping and cleaning; Z79.899 Other long term (current) drug therapy
CPT/HCPCS: 96372; 99283; J1885